=== PATIENT | female | born 1960 | race Two or more races ===

== ENCOUNTER 2024-02-22 06:21 | Emergency (ER) | payer MEDICARE, MEDICAID, SELFPAY ==
[2024-02-22 06:21] VITALS: BMI 52.9
[2024-02-22 06:25] VITALS: BP 171/90; PULSE 67; RESP 20; TEMP 36.7; O2SAT 95
--- NOTE | 2024-02-22 06:33 | XR_ITS ---
Examination: CT abdomen and pelvis without contrast. Coronal 3-D reconstructions. Sagittal 2-D reconstructions. Date and time of exam:February 22, 2024 at 0652 hrs. Comparison September 18, 2007 Indications: Lower pelvic pressure and pain beginning 2 days ago, history urinary tract infection 2 days ago CTDI: vol (mGy): 24.9 DLP: (mGycm): 1383 Technique: Axial images of the abdomen have been obtained, 3 mm slice thickness Intravenous contrast material has not been administered. Low dose protocols were performed. One or more of the following dose reduction techniques were used; automated exposure control, adjustment of the mA and/or KV according to patient size, use of iterative reconstruction technique. Findings: No focal liver or splenic lesions Cholelithiasis No pancreatic mass Mild to moderate bilateral renal parenchymal scar formation Mild right hydronephrosis with wall thickening of the ureter, no ureteral calculi Normal appendix No bowel obstruction No diverticulitis 24 mm fat-containing umbilical hernia Moderate osteopenia. One anterolisthesis L4 on L5 Impression: Cholelithiasis Mild to moderate bilateral renal parenchymal scar formation Mild right hydronephrosis, wall thickening of the right ureter, no ureteral calculi, most consistent with right urinary tract infection
[2024-02-22 06:57] LABS: Basophils % (Auto) 1 % (0-2.5); Eosinophils # (Auto) 0.1 Thou/mm3 (0.0-0.5); Eosinophils % (Auto) 1 % (0-10); Hematocrit 38.6 % (36.0-46.0); Hemoglobin 12.7 g/dL (12.0-16.0); Immature Granulocytes % (Auto) 0 % (0-0); Immature Granulocytes Auto 0.03 Thou/mm3 (0.00-0.00); Lymphocytes # (Auto) 1.5 Thou/mm3 (1.0-4.8); Lymphocytes % (Auto) 18 % (10-50); Mean Corpuscular HGB Conc 32.9 g/dl (31.0-37.0); Mean Corpuscular Hemoglobin 29.3 pg (25.0-35.0); Mean Corpuscular Volume 89 fL (80-100); Monocytes # (Auto) 0.6 Thou/mm3 (0.0-0.8); Monocytes % (Auto) 7 % (0-12); Neutrophils # (Auto) 5.9 Thou/mm3 (1.8-7.7); Neutrophils % (Auto) 72 % (37-80); Nucleated Red Blood Cell % 0 /100 WBC (0); Platelet Count 240 Thou/mm3 (140-440); RDW Standard Deviation 43.8 fL (36.4-46.3); Red Blood Count 4.33 Miln/mm3 (4.00-5.20); White Blood Count 8.2 Thou/mm3 (3.6-11.0)
[2024-02-22 07:13] LABS: Alanine Aminotransferase 56 U/L (10-49); Albumin, Serum 4.5 gm/dL (3.4-4.8); Albumin/Globulin Ratio 1.4 (1.2-2.2); Alkaline Phosphatase 126 U/L (46-116); Anion Gap 5 (7-16); Aspartate Amino Transferase 55 U/L (0-34); BUN/Creatinine Ratio 20 Ratio (12-20); Bilirubin,Total 0.5 mg/dL (0.3-1.2); Blood Urea Nitrogen 16 mg/dL (9-23); Calcium 9.3 mg/dL (8.3-10.6); Calcium (Corrected) 9.3 mg/dL (8.5-10.1); Carbon Dioxide 25.9 mMol/L (20.0-31.0); Chloride 107 mMol/L (98-107); Creatinine (Component) 0.8 mg/dL (0.6-1.3); Estimated Creatinine Clearance 90.3 mL/min (>60); Globulin 3.3 gm/dL (2.3-3.5); Glucose 128 mg/dL (74-106); Lipase 44 U/L (12-53); Osmolality,Calculated 278 (275-295); Potassium 3.8 mMol/L (3.4-5.1); Sodium 138 mMol/L (136-145); Total Protein 7.8 gm/dL (5.7-8.2); eGFR > 60 See Note
[2024-02-22 07:52] LABS: Collection Type, Urine Clean Catch
[2024-02-22 08:09] VITALS: BP 169/76; PULSE 82; RESP 16; TEMP 37.1; O2SAT 96
[2024-02-22] MEDS: KETOROLAC INJ 30 MG/ML VIAL IM (08:10)
[2024-02-22 08:53] LABS: Bacteria,Urine 3+; Bilirubin,Urine Negative (Negative); Blood,Urine 2+ (Negative); Clarity,Urine Clear (Clear/Hazy); Color,Urine Yellow (Lt Yel-Yel); Culture Indicated,Urine Yes; Glucose, Urine Negative (Negative); Ketones,Urine Negative (Negative); Leukocyte Esterase,Urine Negative (Negative); Nitrite,Urine Negative (Negative); Protein,Urine 1+ (Neg - Trace); RBC,Urine 46 /hpf (0-3); Specific Gravity,Urine 1.023 (1.001-1.035); Squamous Epithelial Cell,Urine 3 /hpf (0-5); Urobilinogen,Urine Negative mg/dL (0.0-1.0); WBC,Urine 22 /hpf (0-5)
--- NOTE | 2024-02-22 08:57 | PD.EDFMALE ---
ED Female Urogenital RME/HPI General Chief complaint: Urogenital-Female Stated complaint: UTI SYMPTOMS Time Seen by Provider: 02/22/24 06:23 Arrival date/time: 02/22/24 06:21 63-year-old female presents the emergency department complains of dysuria and right flank pain patient reports no fever nausea or vomiting patient reports symptoms acute on onset Limitations: no limitations Related Data Home Medications ?Medication ?Instructions ?Recorded ?Confirmed doxycycline hyclate 100 mg capsule 100 mg PO QDAY 02/02/22 02/02/22 oxybutynin chloride 5 mg tablet 5 mg PO BID 02/02/22 02/02/22 Previous Rx's ?Medication ?Instructions ?Recorded ibuprofen 800 mg tablet 800 mg PO TID PRN pain #30 tabs 10/11/22 ciprofloxacin HCl 500 mg tablet 500 mg PO BID 7 days #14 tabs 02/22/24 ibuprofen 800 mg tablet 800 mg PO TID PRN pain #30 tabs 02/22/24 Allergies Allergy/AdvReac Type Severity Reaction Status Date / Time tolterodine Allergy Unknown swell Verified 02/22/24 06:24 Review of Systems Review of Systems Systems Reviewed: All systems reviewed, normal except as documented Constitutional Constitutional: Reports system reviewed and no additional complaints, except as documented, Denies fever(s) and Denies headache(s) Eyes Eyes: Reports system reviewed and no additional complaints, except as documented and Denies blurry vision ENT Ears, Nose, Mouth, and Throat: Reports system reviewed and no additional complaints, except as documented, Denies headache(s), Denies nasal congestion and Denies nasal discharge Cardiovascular Cardiovascular: Reports system reviewed and no additional complaints, except as documented, Denies chest pain and Denies dyspnea Respiratory Respiratory: Reports system reviewed and no additional complaints, except as documented, Denies chest congestion, Denies cough and Denies dyspnea Gastrointestinal Gastrointestinal: Reports system reviewed and no additional complaints, except as documented and Denies abdominal pain Genitourinary Genitourinary: Reports system reviewed and no additional complaints, except as documented, Denies abnormal vaginal bleeding and Reports dysuria Integumentary/Breasts Skin/Breast: Reports system reviewed and no additional complaints, except as documented and Denies rash Neurologic Neurologic: Reports system reviewed and no additional complaints, except as documented, Reports as per HPI and Denies headache(s) Past Medical History Past Medical History NEUROLOGIC: Negative Neurological Disorders CARDIAC: Negative Cardiac Disorders ED Exam General Limitations: Present no limitations General appearance: Present alert and in no apparent distress Head Head exam: Present atraumatic Eye Eye exam: Present normal appearance, PERRL and EOMI; Absent conjunctival injection ENT ENT exam: Present normal exam, normal oropharynx and mucous membranes moist Neck Neck exam: Present normal inspection, full ROM and trachea midline Chest Chest inspection: Present normal inspection and symmetric chest wall rise Respiratory Respiratory exam: Present normal lung sounds bilaterally; Absent respiratory distress Cardiovascular Cardiovascular exam: Present regular rate, normal rhythm and normal heart sounds Abdominal Exam Abdominal exam: Present soft and normal bowel sounds; Absent distention, tenderness, guarding, rebound or rigidity Extremities Exam Extremities exam: Present normal inspection and full ROM Back Exam Back exam: Present normal inspection and full ROM Neurological Exam Neurological exam: Present alert, oriented X3 and CN II-XII intact Psychiatric Psychiatric exam: Present normal affect and normal mood Skin Skin exam: Present warm, dry, intact and normal color Course Quality Measures none Orders Category Date Time Status CT abdomen pelvis wo con Stat Exams 02/22/24 06:33 Completed CBC Stat Lab 02/22/24 06:41 Completed Comprehensive Metabolic Panel Stat Lab 02/22/24 06:41 Completed Lipase Stat Lab 02/22/24 06:41 Completed UA, C/S IF [Urinalysis, C/S if Indicated] Stat Lab 02/22/24 07:00 Completed Urine Culture Stat Lab 02/22/24 07:00 Received Ketorolac Inj [Toradol Inj] Med 02/22/24 07:48 Discontinued 30 mg IM X1 ONE Lidocaine 1% 20 ml [Xylocaine 1% 20 ML] Med 02/22/24 08:55 Discontinued 2.1 ml INFL X1 ONE cefTRIAXone [Rocephin] Med 02/22/24 08:55 Discontinued 1,000 mg IM X1 ONE Vital Signs Vital signs: Vital Signs Temperature 98.0 F 02/22/24 06:25 Pulse Rate 67 02/22/24 06:25 Respiratory Rate 20 02/22/24 06:25 Blood Pressure 171/90 H 02/22/24 06:25 Pulse Oximetry (%) 95 02/22/24 06:25 Oxygen Delivery Method Room Air 02/22/24 06:25 O2 saturation 95% room air within normal limits Urogenital - Female MDM Narrative MDM Narrative:: 63-year-old female presents the emergency department complains of dysuria and right flank pain patient reports no fever nausea or vomiting patient reports symptoms acute on onset On exam patient well-appearing patient does not appear ill or toxic patient does not appear in acute distress Lab work obtained as well as CT scan Lab work consistent with UTI CT scan also consistent with UTI No acute emergent findings noted Patient given pain medication as well as antibiotics and discharged home with the same Patient discharged home in no distress to follow-up with primary care doctor in the next 24 to 48 hours and for any worsening symptoms to return to the ER immediately Patient data External records reviewed:: [facility] previous records Clinical information provided by:: patient Social determinants that could affect healthcare access:: none Patient has the following chronic illnesses:: See history How is presenting disease/condition affected by chronic disease/condition?: uneffected by Evaluation data The following diagnostics were reviewed and interpreted by me:: lab results and radiology exam(s) Lab and/or radiology exams considered but not ordered:: Labs and radiology obtained Interpretation Summary: Reviewed by me Medications / Prescriptions Medications or Prescriptions considered but not ordered:: Given Medication administrations:: Medication Administration History Discontinued Medications Ceftriaxone Sodium (Ceftriaxone Sod Inj 1,000 Mg Vial) 1,000 mg IM X1 ONE Stop: 02/22/24 08:56 Last Admin: 02/22/24 09:26 Dose: 1,000 mg Documented By: ROSIBEL Ketorolac Tromethamine (Ketorolac Inj 30 Mg/Ml Vial) 30 mg IM X1 ONE Stop: 02/22/24 07:49 Last Admin: 02/22/24 08:10 Dose: 30 mg Documented By: ROSIBEL Lidocaine HCl (Lidocaine Hcl 1% 20 Ml Vial) 2.1 ml INFL X1 ONE Stop: 02/22/24 08:56 Last Admin: 02/22/24 09:27 Dose: 2.1 ml Documented By: ROSIBEL Given Consultations Consultation(s) initiated? (list below): No Diagnosis Urogenital Female Differential Diagnosis: urinary tract infection and cystitis Most likely diagnosis given after review of the tests above:: UTI Admission Indicated Admission indicated?: not indicated Admission Request Was there a request for admission?: No Disposition Plan Disposition Plan: Discharge Discharge Attestation Discharge Attestation: The patient and all family members were given an opportunity to ask questions and understood the discharge instructions. Discharge instructions specifically effects, indications for sooner follow up or return to the emergency department, and the expected course of current diagnosis. Patient condition: Stable Discharge Plan Plan Patient Disposition: HOME (Self Care) Disposition Comment: Stable Prescriptions/Referrals Prescriptions/Med Rec: New ibuprofen 800 mg tablet 800 mg PO TID PRN (Reason: pain) Qty: 30 0RF ciprofloxacin HCl 500 mg tablet 500 mg PO BID 7 Days Qty: 14 0RF No Action doxycycline hyclate 100 mg capsule 100 mg PO QDAY Patient Comments: TAKE 1 CAPSULE BY MOUTH EVERY DAY oxybutynin chloride 5 mg tablet 5 mg PO BID Patient Comments: TAKE 1 TABLET BY MOUTH TWICE A DAY ibuprofen 800 mg tablet 800 mg PO TID PRN (Reason: pain) Qty: 30 0RF Referrals: Alexander Farmer MD [Primary Care Provider] - 02/24/24 Problem List Clinical Impression: UTI (urinary tract infection) Patient/Caregiver Discharge Instructions Education Materials: Understanding Urinary Tract ... Additional Instructions: Please follow up with your primary care doctor in the next 24-48hrs for any worsening symptoms return here immediately Print Language: [employer]ight Stand Alone Forms: Suki Award Info., Patient Portal Info Letter Attestation Attestation The patient was seen by the midlevel practitioner. I, the co-signing physician, was present during the entire ER visit. While I did not physically examine the patient, I was available for consultation as needed.
[2024-02-22] MEDS: cefTRIAXone SOD INJ 1,000 MG VIAL 1000 MG IM (09:26)
[2024-02-22] MEDS: LIDOCAINE HCL 1% 20 ML VIAL 2.1 ML INFL (09:27)
== END 2024-02-22 09:27 | disposition home or self-care (01) ==
PROVIDERS: Nurse Practitioner Primary Care; Emergency Provider Emergency Medicine; PCP Family Medicine
DX: N39.0 Urinary tract infection, site not specified (principal); R10.2 Pelvic and perineal pain
CPT/HCPCS: 36415; 74176; 80053; 81001; 83690; 85025; 87077; 87086; 87186; 96372; 99284; J0696; J1885; J3490